=== PATIENT | male | born 1985 | race Two or more races ===

== ENCOUNTER 2016-07-05 16:25 | Emergency (ER) | payer BC ==
[2016-07-05] MEDS ORDERED: ASPIRIN CHEWTAB 81 MG TABLET ONE (17:05)
[2016-07-05] MEDS ORDERED: MAALOX/LIDO2%VISC/SIMETHICONE 40 ML BOT ONE (17:05)
--- NOTE | 2016-07-05 17:23 | RAD ---
History: Chest pain with left arm numbness. Comparison: None. Technique: 2 views Findings: The soft tissue and bony structures are unremarkable. The heart size is appropriate. No infiltrate, effusion or pneumothorax is observed. The hilar and mediastinal structures are normal. Impression: 1. A negative 2 view chest
[2016-07-05 17:28] LABS: BASO % 0.5 % (0.2-1.0); EOS # 0.4 (0.0-0.5); EOS % 5.2 % (0.9-2.9); HEMATOCRIT 46.6 % (32.0-52.0); HEMOGLOBIN 13.9 gm/l (14.0-18.0); IMM NEUT% 0.4 % (0-1); LYMPH # 3.2 (1.0-4.8); LYMPH % 37.9 % (15-45); MEAN CELL VOLUME 69.8 fl (80.0-94.0); MEAN CORPUSCULAR HEMOGLOBIN 20.8 pg (27.0-31.0); MEAN CORPUSCULAR HGB CONC 29.8 g/dl (33.0-37.0); MEAN PLATELET VOLUME 9.9 fl (7.4-10.4); MONO # 0.7 (0.0-0.8); MONO % 8.7 % (4-12); NEUT % 47.3 % (43-75); PLATELET COUNT 299 K/mm3 (130-400); RED CELL DISTRIBUTION WIDTH 16.7 % (11.5-14.5)
[2016-07-05 17:29] LABS: ALB/GLOB RATIO 1.4 (>1.0); ALBUMIN 4.5 gm/dL (3.5-5.7); CALCIUM 9.5 mg/dL (8.6-10.3)
[2016-07-05 17:36] LABS: TROPONIN I < 0.01 ng/ml (0.0-0.06)
[2016-07-05 17:39] LABS: CKMB ISOENZYME 1.2 ng/ml (0.6-6.3)
[2016-07-05 18:13] LABS: PLATELET ESTIMATE NORMAL (NORMAL)
[2016-07-05 18:14] LABS: HYPOCHROMIA 2+
== END 2016-07-05 18:36 | disposition home or self-care (01) ==
LOC: ED 16:25
DX: R07.9 Chest pain, unspecified (principal); G43.909 Migraine, unspecified, not intractable, without status migrainosus; I10 Essential (primary) hypertension; Z79.84 Long term (current) use of oral hypoglycemic drugs; E11.9 Type 2 diabetes mellitus without complications; F17.210 Nicotine dependence, cigarettes, uncomplicated
CPT/HCPCS: 85025; 82553; 80053; 84484; 71020; 99283 ×2; 36415; 93005; A9270 ×2